=== PATIENT | female | born 1960 | race Hispanic/Latino ===

== ENCOUNTER 2017-04-18 11:24 | Emergency (ER) | payer MEDICARE ==
[2017-04-18 11:33] VITALS: TEMP 97.3
--- NOTE | 2017-04-18 12:08 | C.PDOC ---
History Of Present Illness 57 y/o female presents to the ER complaining of LLQ abdominal pain which has been present for the past 2 weeks. Patient states that the pain radiates to the left flank and down the left leg. Patient is also complaining about constipation. Patient denies any fever, chills, and dysuria but states urine has been cloudy in appearance. Time Seen by Provider: 04/18/17 11:56 Chief Complaint (Nursing): Lower Extremity Problem/Injury History Per: Patient History/Exam Limitations: no limitations Onset/Duration Of Symptoms: Days Current Symptoms Are (Timing): Still Present Severity: Moderate Past Medical History Reviewed: Historical Data, Nursing Documentation, Vital Signs Vital Signs: Last Vital Signs Temp 97.3 F L 04/18/17 11:30 Pulse 81 04/18/17 15:10 Resp 16 04/18/17 15:10 BP 136/88 04/18/17 15:10 Pulse Ox 98 04/18/17 15:10 - Medical History PMH: Anxiety Other Surgeries: Hx of surgeries - [facility] OTHER ENDOSCOPY OF SM INTEST (10/13/99) Family History: States: No Known Family Hx - Social History Hx Alcohol Use: Yes Hx Substance Use: No - Immunization History Hx Tetanus Toxoid Vaccination: No Hx Influenza Vaccination: No Hx Pneumococcal Vaccination: No Review Of Systems Except As Marked, All Systems Reviewed And Found Negative. Constitutional: Negative for: Fever, Chills Genitourinary: Negative for: Dysuria Physical Exam - Physical Exam Additional Physical Exam Comments: Constitutional: No acute distress. Head: Normocephalic. Atraumatic. Eyes: PERRL. ENT: Moist mucous membranes. Neck: Supple. Chest: No tenderness. GI: Soft. LLQ Tenderness. Nondistended. Back: No CVA tenderness. Musculoskeletal: No tenderness or swelling of extremities. Negative Straight Leg Raise. Skin: No rash. Neurologic: Alert, no focal deficit. ED Course And Treatment O2 Sat by Pulse Oximetry: 97 (RA) Pulse Ox Interpretation: Normal Medical Decision Making Medical Decision Making: FINDINGS: There is limited evaluation of the solid organs without the administration of IV contrast. LOWER THORAX: No visible consolidation, pleural effusion, or pneumothorax. LIVER: Unremarkable unenhanced appearance. GALLBLADDER AND BILE DUCTS: Unremarkable unenhanced appearance. PANCREAS: Unremarkable unenhanced appearance. SPLEEN: Unremarkable unenhanced appearance. ADRENALS: Left adrenal gland mass measures approximately -7 HU, likely adenoma. The unenhanced right adrenal gland appears unremarkable. KIDNEYS AND URETERS: No hydronephrosis or obstructing renal calculus. BLADDER: Under distension of the urinary bladder limits evaluation. REPRODUCTIVE: Uterus is present. APPENDIX: The appendix is not identified. No secondary signs of acute appendicitis identified. BOWEL: The stomach is nondistended. Lack of oral contrast limits evaluation for bowel pathology. The bowel loops appear within normal limits of caliber without evidence of intestinal obstruction. PERITONEUM: No significant free fluid. No definite free air. LYMPH NODES: No bulky lymphadenopathy identified. VASCULATURE: No aortic aneurysm. BONES: No acute osseous abnormality is detected. OTHER FINDINGS: None. IMPRESSION: Left adrenal gland mass as above, likely adenoma. Will treat as UTI, treat constipation as stool is present on imaging and patients states has not had bowel movement and also treat with ibuprofen for possible MSK pain. No evidence of bowel thickening, inflammatory changes, kidney stone, diverticulosis, or obstruction. Disposition - Disposition Referrals: Todd Davies MD [Staff Provider] - Disposition: HOME/ ROUTINE Disposition Time: 14:54 Condition: GOOD Prescriptions: Ibuprofen [Motrin] 1 tab PO Q6 #30 tab Nitrofurantoin Macrocrystals [Macrobid] 100 mg PO BID #14 cap Polyethylene Glycol 3350 [Miralax] 17 gm PO DAILY #238 gm Instructions: Urinary Tract Infection in Women (ED) Forms: [facility] (Thai) - Clinical Impression Clinical Impression: UTI (urinary tract infection) - Scribe Statement The provider has reviewed the documentation as recorded by the Ron Servin Provider Attestation: All medical record entries made by the Anitraibdoris were at my direction and personally dictated by me. I have reviewed the chart and agree that the record accurately reflects my personal performance of the history, physical exam, medical decision making, and the department course for this patient. I have also personally directed, reviewed, and agree with the discharge instructions and disposition.
[2017-04-18 12:43] LABS: SQUAMOUS EPITHIAL 2 /hpf (0-5); URINE BILIRUBIN NEGATIVE (NEGATIVE); URINE BLOOD 1+ (NEGATIVE); URINE CLARITY Hazy (Clear); URINE COLOR Amber (YELLOW); URINE GLUCOSE (UA) NORMAL (Normal); URINE HYALINE CAST 0-2 /lpf (0-2); URINE LEUKOCYTE ESTERASE 1+ Leu/uL (Negative); URINE NITRATE NEGATIVE (NEGATIVE); URINE PROTEIN NEGATIVE (NEGATIVE)
--- NOTE | 2017-04-18 14:43 | RAD ---
HISTORY: Left leg pain radiating to back COMPARISON: April 17, 2017. CT abdomen and pelvis FINDINGS: BOWEL: Normal. No obstruction. No free air. BONES: Scoliosis without appreciable secondary degenerative change. OTHER FINDINGS: None. IMPRESSION: No significant or acute findings to account for/ related to the clinical presentation.
--- NOTE | 2017-04-18 14:50 | CT ---
PROCEDURE: CT Abdomen and Pelvis without Oral or IV contrast. HISTORY: hematuria, flank pain COMPARISON: None. TECHNIQUE: Contiguous axial images of the abdomen and pelvis. No oral or IV contrast administered. Coronal and Sagittal reformats generated. Radiation dose: Total exam DLP = 204.39 mGy-cm. This CT exam was performed using one or more of the following dose reduction techniques: Automated exposure control, adjustment of the mA and/or kV according to patient size, and/or use of iterative reconstruction technique. FINDINGS: There is limited evaluation of the solid organs without the administration of IV contrast. LOWER THORAX: No visible consolidation, pleural effusion, or pneumothorax. LIVER: Unremarkable unenhanced appearance. GALLBLADDER AND BILE DUCTS: Unremarkable unenhanced appearance. PANCREAS: Unremarkable unenhanced appearance. SPLEEN: Unremarkable unenhanced appearance. ADRENALS: Left adrenal gland mass measures approximately -7 HU, likely adenoma. The unenhanced right adrenal gland appears unremarkable. KIDNEYS AND URETERS: No hydronephrosis or obstructing renal calculus. BLADDER: Under distension of the urinary bladder limits evaluation. REPRODUCTIVE: Uterus is present. APPENDIX: The appendix is not identified. No secondary signs of acute appendicitis identified. BOWEL: The stomach is nondistended. Lack of oral contrast limits evaluation for bowel pathology. The bowel loops appear within normal limits of caliber without evidence of intestinal obstruction. PERITONEUM: No significant free fluid. No definite free air. LYMPH NODES: No bulky lymphadenopathy identified. VASCULATURE: No aortic aneurysm. BONES: No acute osseous abnormality is detected. OTHER FINDINGS: None. IMPRESSION: Left adrenal gland mass as above, likely adenoma.
[2017-04-18 15:11] VITALS: BP 136/88; PULSE 81; RESP 16
[2017-04-18 15:28] VITALS: O2SAT 97
== END 2017-04-18 15:10 | disposition home or self-care (01) ==
LOC: C.ER 11:24
DX: N39.0 Urinary tract infection, site not specified (principal)